=== PATIENT | female | born 1970 | race Two or more races ===

== ENCOUNTER 2021-12-16 07:25 | Emergency (ER) | payer OTHER ==
[~2021-12-16] VITALS: Ht 170.2 cm; Wt 92.5 kg
[2021-12-16] MEDS ORDERED: SIMVASTATIN20 MG PO (07:37)
[2021-12-16] MEDS ORDERED: AZITHROMYCIN500 MG PO (07:37)
[2021-12-16] MEDS ORDERED: METHYLPREDNISOLO4 M1 PO (07:37)
[2021-12-16] MEDS ORDERED: LEVALBUTER1.25 MG/3 IH (07:37)
== END 2021-12-16 11:36 | disposition home or self-care (01) ==
LOC: ER 07:25
DX: J45.901 Unspecified asthma with (acute) exacerbation (principal); I10 Essential (primary) hypertension; Z88.0 Allergy status to penicillin; Z20.822 Contact with and (suspected) exposure to COVID-19